=== PATIENT | male | born 1985 | race African-American/Black ===

== ENCOUNTER 2016-12-09 20:57 | Emergency (ER) | payer SELFPAY ==
[2016-12-09] MEDS ORDERED: Lidocaine 2% Viscous Solution 15 ML Cup PO ONE (21:17)
[2016-12-09] MEDS ORDERED: Benzocaine 20% Topical Spray UD MUCMEM ONE (21:17)
--- NOTE | 2016-12-09 21:22 | EDM.PDOC ---
ED HPI GENERAL MEDICAL PROBLEM - General Chief Complaint: General Stated Complaint: BLEEDING MOUTH Time Seen by Provider: 12/09/16 21:10 Source of Information: Reports: Patient History Limitations: Reports: No limitations - History of Present Illness INITIAL COMMENTS - FREE TEXT/NARRATIVE: History of present illness: [31-year-old male comes in complaining with acute oral pain indicates that he has had 2 stents fractured and his mouth is bleeding. Tooth is an area of 18-19 and is able to store tooth that has now fractured and you can see the amalgam as well as the Bentson and some beginning caries.] Review of systems: As per history of present illness and below otherwise all systems reviewed and negative. Past medical history: As per history of present illness and as reviewed below otherwise noncontributory. Surgical history: As per history of present illness and as reviewed below otherwise noncontributory. Social history: No reported history of drug or alcohol abuse. Family history: As per history of present illness and as reviewed below otherwise noncontributory. Physical exam: HEENT: Atraumatic, normocephalic, pupils reactive, negative for conjunctival pallor or scleral icterus, mucous membranes moist, throat clear, neck supple, nontender, trachea midline. Lungs: Clear to auscultation, breath sounds equal bilaterally, chest nontender. Heart: S1S2, regular, negative for clicks, rubs, or JVD. Abdomen: Soft, nondistended, nontender. Negative for masses or hepatosplenomegaly. Negative for costovertebral tenderness. Pelvis: Stable nontender. Genitourinary: Deferred. Rectal: Deferred. Extremities: Atraumatic, negative for cords or calf pain. Neurovascular unremarkable. Neuro: Awake, alert, oriented. Cranial nerves II through XII unremarkable. Cerebellum unremarkable. Motor and sensory unremarkable throughout. Exam nonfocal. Fractured tooth with obvious piece of tooth missing with dental caries Diagnostics: [] Therapeutics: [] Impression: [Oral pain] Plan: [Dental balls, antibiotics, brief run of Tylenol 3] Definitive disposition and diagnosis as appropriate pending reevaluation and review of above. left lower jaw Pain Score (Numeric/FACES): 8 - Related Data Allergies Allergy/AdvReac Type Severity Reaction Status Date / Time seafood Allergy Airway Uncoded 12/09/16 21:08 Tightness Home Meds: Home Meds Amoxicillin/Clavulanate K [Augmentin 875 MG/125 MG] 1 tab PO Q12HR #20 tablet [Rx] Past Medical History - Past Health History Medical/Surgical History: Denies Medical/Surgical History Other Cardiovascular History: childhood heart murmur - Infectious Disease History Infectious Disease History: Reports: Chicken pox Social & Family History - Family History Family Medical History: Noncontributory - Tobacco Use Smoking Status *Q: Current Every Day Smoker Years of Tobacco use: 3 Packs/Tins Daily: 0.5 Used Tobacco, but Quit: Yes Month Tobacco Last Used: 07/16/2015 - Recreational Drug Use Recreational Drug Use: Yes Drug Use in Last 12 Months: Yes Recreational Drug Type: Reports: Marijuana/Hashish Recreational Drug Use Frequency: Binges ED ROS GENERAL - Review of Systems Review Of Systems: See Below (The history of present illness) ED EXAM, GENERAL - Physical Exam Exam: See Below (See history of present illness) Course - Vital Signs Last Recorded V/S: Last Vital Signs Temp 36.4 C 12/09/16 21:08 Pulse 88 12/09/16 21:08 Resp 18 12/09/16 21:08 BP 134/74 12/09/16 21:08 Pulse Ox 98 12/09/16 21:08 - Orders/Labs/Meds Meds: Medications Discontinued Medications Generic Name Dose Route Start Last Admin Trade Name Torrey PRN Reason Stop Dose Admin Benzocaine 2 each 12/09/16 21:17 Hurricaine One 20% MUCMEM 12/09/16 21:18 ONETIME ONE Lidocaine HCl 15 ml 12/09/16 21:17 Xylocaine 2% Viscous PO 12/09/16 21:18 ONETIME ONE Departure - Departure Time of Disposition: 21:21 Disposition: Home, Self-Care 01 Condition: good Clinical Impression: Dental abscess, Dental caries, Fractured dental restorationism with loss of material Prescriptions: Amoxicillin/Clavulanate K [Augmentin 875 MG/125 MG] 1 tab PO Q12HR #20 tablet Forms: ED Department Discharge Additional Instructions: The following information is given to patients seen in the emergency department who are being discharged to home. This information is to outline your options for follow-up care. We provide all patients seen in our emergency department with a follow-up referral. The need for follow-up, as well as the timing and circumstances, are variable depending upon the specifics of your emergency department visit. If you don't have a primary care physician on staff, we will provide you with a referral. We always advise you to contact your personal physician following an emergency department visit to inform them of the circumstance of the visit and for follow-up with them and/or the need for any referrals to a consulting specialist. The emergency department will also refer you to a specialist when appropriate. This referral assures that you have the opportunity for follow-up care with a specialist. All of these measure are taken in an effort to provide you with optimal care, which includes your follow-up. Under all circumstances we always encourage you to contact your private physician who remains a resource for coordinating your care. When calling for follow-up care, please make the office aware that this follow-up is from your recent emergency room visit. If for any reason you are refused follow-up, please contact the [facility] Emergency Department at and asked to speak to the emergency department charge nurse. Take medication as directed All the primary care provider/dentist RAMY Return to ED as needed as discussed
[2016-12-09 21:39] VITALS: BP 127/71
== END 2016-12-09 21:39 | disposition home or self-care (01) ==
LOC: MW.ED 20:57
DX: K08.531 Fractured dental restorative material with loss of material (principal); K04.7 Periapical abscess without sinus; K02.9 Dental caries, unspecified; R01.1 Cardiac murmur, unspecified; F17.210 Nicotine dependence, cigarettes, uncomplicated; Z91.013 Allergy to seafood
CPT/HCPCS: 99282; A9270; 99283

== ENCOUNTER 2017-01-27 08:37 | Emergency (ER) | payer SELFPAY ==
[2017-01-27] MEDS ORDERED: Benzocaine 20% Topical Spray UD MUCMEM ONE (08:52)
[2017-01-27] MEDS ORDERED: Lidocaine 2% Viscous Solution 15 ML Cup PO ONE (08:52)
[2017-01-27] MEDS ORDERED: traMADol 50 MG Tab PO ONE (08:55)
--- NOTE | 2017-01-27 08:56 | EDM.PDOC ---
ED HPI GENERAL MEDICAL PROBLEM - General Chief Complaint: General Stated Complaint: MOUTH Time Seen by Provider: 01/27/17 08:38 Source of Information: Reports: Patient History Limitations: Reports: No Limitations - History of Present Illness INITIAL COMMENTS - FREE TEXT/NARRATIVE: History of present illness: [] Patient has history of a bad tooth it intermittently flares up with pain. Yesterday it got worse after eating something hard or he denies any fevers, chills or swelling of his face. He feels there is swelling of the surrounding gum but denies any drainage. Review of systems: As per history of present illness and below otherwise all systems reviewed and negative. Past medical history: As per history of present illness and as reviewed below otherwise noncontributory. Surgical history: As per history of present illness and as reviewed below otherwise noncontributory. Social history: No reported history of drug or alcohol abuse. Family history: As per history of present illness and as reviewed below otherwise noncontributory. Physical exam: General: Well developed, well nourished in NAD HEENT: Atraumatic, normocephalic, pupils reactive, negative for conjunctival pallor or scleral icterus, mucous membranes moist, throat clear, neck supple, nontender, trachea midline. Lungs: Clear to auscultation, breath sounds equal bilaterally, chest nontender. Heart: S1S2, regular, negative for clicks, rubs, or JVD. Abdomen: Soft, nondistended, nontender. Negative for masses or hepatosplenomegaly. Negative for costovertebral tenderness. Pelvis: Stable nontender. Genitourinary: Deferred. Rectal: Deferred. Extremities: Atraumatic, negative for cords or calf pain. Neurovascular unremarkable. Neuro: Awake, alert, oriented. Cranial nerves II through XII unremarkable. Cerebellum unremarkable. Motor and sensory unremarkable throughout. Exam nonfocal. Diagnostics: [] Therapeutics: [] I offered a dental block he refused because he is "deathly afraid of needles ". Patient given tramadol in the ED Impression: [] Dental caries Plan: [] Ritchie K, tramadol, dental balls for pain followup with a dentist for tooth extraction RAMY Definitive disposition and diagnosis as appropriate pending reevaluation and review of above. Left Lower Dental Pain Score (Numeric/FACES): 7 - Related Data Allergies Allergy/AdvReac Type Severity Reaction Status Date / Time seafood Allergy Airway Uncoded 01/27/17 08:50 Tightness Home Meds: Home Meds Penicillin V Potassium 500 mg PO Q6HR #40 tab 01/27/17 [Rx] traMADol [Ultram] 50 mg PO Q8H PRN #12 tablet 01/27/17 [Rx] Past Medical History - Past Health History Medical/Surgical History: Denies Medical/Surgical History Other Cardiovascular History: childhood heart murmur - Infectious Disease History Infectious Disease History: Reports: Chicken Pox Social & Family History - Family History Family Medical History: Noncontributory - Tobacco Use Smoking Status *Q: Current Every Day Smoker Years of Tobacco use: 3 Packs/Tins Daily: 0.5 Used Tobacco, but Quit: Yes Month Tobacco Last Used: 07/16/2015 - Recreational Drug Use Recreational Drug Use: Yes Drug Use in Last 12 Months: Yes Recreational Drug Type: Reports: Marijuana/Hashish Recreational Drug Use Frequency: Binges ED ROS GENERAL - Review of Systems Review Of Systems: See Below (See history of present illness) ED EXAM, GENERAL - Physical Exam Exam: See Below (See history of present illness) Course - Vital Signs Last Recorded V/S: Last Vital Signs Temp 36.7 C 01/27/17 08:50 Pulse 82 01/27/17 08:50 Resp 18 01/27/17 08:50 BP 196/103 H 01/27/17 08:50 Pulse Ox 97 01/27/17 08:50 - Orders/Labs/Meds Meds: Medications Discontinued Medications Generic Name Dose Route Start Last Admin Trade Name Freq PRN Reason Stop Dose Admin Benzocaine 2 each 01/27/17 08:52 Hurricaine One 20% MUCMEM 01/27/17 08:53 ONETIME ONE Lidocaine HCl 15 ml 01/27/17 08:52 Xylocaine 2% Viscous PO 01/27/17 08:53 ONETIME ONE Tramadol HCl 50 mg 01/27/17 08:55 Ultram PO 01/27/17 08:56 ONETIME ONE Departure - Departure Time of Disposition: 08:58 Disposition: Home, Self-Care 01 Condition: good Clinical Impression: Dental caries - Discharge Information Prescriptions: Penicillin V Potassium 500 mg PO Q6HR #40 tab traMADol [Ultram] 50 mg PO Q8H PRN #12 tablet PRN Reason: Pain Forms: ED Department Discharge Additional Instructions: The following information is given to patients seen in the emergency department who are being discharged to home. This information is to outline your options for follow-up care. We provide all patients seen in our emergency department with a follow-up referral. The need for follow-up, as well as the timing and circumstances, are variable depending upon the specifics of your emergency department visit. If you don't have a primary care physician on staff, we will provide you with a referral. We always advise you to contact your personal physician following an emergency department visit to inform them of the circumstance of the visit and for follow-up with them and/or the need for any referrals to a consulting specialist. The emergency department will also refer you to a specialist when appropriate. This referral assures that you have the opportunity for follow-up care with a specialist. All of these measure are taken in an effort to provide you with optimal care, which includes your follow-up. Under all circumstances we always encourage you to contact your private physician who remains a resource for coordinating your care. When calling for follow-up care, please make the office aware that this follow-up is from your recent emergency room visit. If for any reason you are refused follow-up, please contact the [facility] Emergency Department at and asked to speak to the emergency department charge nurse. Tramadol, dental pulse, Pen-Vee K followup with a dentist as soon as possible for evaluation or establish primary care for pain management the [facility] [address] [place] [id number]
[2017-01-27] MEDS ORDERED: Ibuprofen 800 MG Tab PO ONE (09:06)
[2017-01-27 09:35] VITALS: BP 138/81
== END 2017-01-27 09:33 | disposition home or self-care (01) ==
LOC: MW.ED 08:37
DX: K02.9 Dental caries, unspecified (principal); F17.210 Nicotine dependence, cigarettes, uncomplicated; Z91.013 Allergy to seafood
CPT/HCPCS: 99282; A9270; 99283

== ENCOUNTER 2017-11-07 11:09 | Emergency (ER) | payer SELFPAY ==
[2017-11-07 11:26] VITALS: BP 166/102
[2017-11-07] MEDS ORDERED: Benzocaine 20% Topical Spray UD MUCMEM ONE (12:05)
[2017-11-07] MEDS ORDERED: Lidocaine 2% Viscous Solution 15 ML Cup PO ONE (12:05)
--- NOTE | 2017-11-07 12:06 | EDM.PDOC ---
ED HPI GENERAL MEDICAL PROBLEM - General Chief Complaint: ENT Problem Stated Complaint: ABSCESS TOOTH Time Seen by Provider: 11/07/17 12:01 Source of Information: Reports: Patient History Limitations: Reports: No Limitations - History of Present Illness INITIAL COMMENTS - FREE TEXT/NARRATIVE: HISTORY AND PHYSICAL: []32-year-old male presenting with tooth abscess now the tooth has come out History of Present Illness: []Pain since yesterday when tooth "fell out" Review of Systems: As per history of present illness and below otherwise all systems reviewed and negative. Past medical history: As per history of present illness and as reviewed below otherwise noncontributory. Surgical history: As per history of present illness and as reviewed below otherwise noncontributory. Social history: No reported history of drug or alcohol abuse. Family history: As per history of present illness and as reviewed below otherwise noncontributory. Physical exam: Alert and oriented male who is answering questions appropriately in full sentences without any shortness of breath is good affect and good eye contact HEENT: Atraumatic, normocehpalic, pupils reactive, negative for conjunctival pallor or scleral icterus, mucous membranes moist, throat clear, neck supple, nontender, trachea midline. Left side of jaw line 2 teeth from the back there is a tooth missing and a opening to the side of his jaw Lungs: Clear to auscultation, breath sounds equal bilaterally, chest non tender. Heart: S1S2, regular, negative for clicks, rubs, or JVD. Abdomen: Soft, nondistended, nontender. Negative for masses or hepatossplenmegaly. Negative for costovertebral tenderness. Pelvis: Stable nontender. Genitourinary: Deferred. Rectal: Deferred Extremities: Atraumatic, negative for cords or calf pain. Neurovascular unremarkable. Neuro: Awake, alert, oriented. Cranial nerves II through XII unremarkable. Cerebellum unremarkable. Motor and sensory unremarkable throughout. Exam nonfocal. Diagnostics: [] Therapeutics: [dental balls] Impression: [Dental abscess] Plan: []Antibiotics Augmentin 875 twice a day 10 days Use the dental balls Follow-up with a dentist of your choice Definitive disposition and diagnosis as appropriate pending reevaluation and review of above. Onset: Sudden Duration: Day(s): Left Lower Tooth/Teeth Pain Score (Numeric/FACES): 3 - Related Data Allergies Allergy/AdvReac Type Severity Reaction Status Date / Time seafood Allergy Airway Uncoded 11/07/17 11:26 Tightness Home Meds: Home Meds Amoxicillin/Potassium Clav [Augmentin 875-125 Tablet] 1 each PO Q12HR #20 tablet 11/07/17 [Rx] Past Medical History - Past Health History Medical/Surgical History: Denies Medical/Surgical History Other Cardiovascular History: childhood heart murmur - Infectious Disease History Infectious Disease History: Reports: Chicken Pox, Other (See Below) Other Infectious Disease History: impetigo Social & Family History - Family History Family Medical History: Noncontributory - Tobacco Use Smoking Status *Q: Current Every Day Smoker Years of Tobacco use: 2 Packs/Tins Daily: 0.1 Used Tobacco, but Quit: Yes Month Tobacco Last Used: 07/16/2015 - Recreational Drug Use Recreational Drug Use: Yes Drug Use in Last 12 Months: No Recreational Drug Type: Reports: Marijuana/Hashish Recreational Drug Use Frequency: Binges ED ROS ENT - Review of Systems Review Of Systems: ROS reveals no pertinent complaints other than HPI. ED EXAM, ENT - Physical Exam Exam: See Below (see dictation) Course - Vital Signs Last Recorded V/S: Last Vital Signs Temp 36.2 C 11/07/17 11:24 Pulse 67 11/07/17 11:24 Resp 18 11/07/17 11:24 BP 166/102 H 11/07/17 11:24 Pulse Ox 97 11/07/17 11:24 Departure - Departure Time of Disposition: 12:04 Disposition: Home, Self-Care 01 Condition: Good Clinical Impression: Dental abscess - Discharge Information Prescriptions: Amoxicillin/Potassium Clav [Augmentin 875-125 Tablet] 1 each PO Q12HR #20 tablet Referrals: PCP,None [Primary Care Provider] - Additional Instructions: The following information is given to patients seen in the emergency department who are being discharged to home. This information is to outline your options for follow-up care. We provide all patients seen in our emergency department with a follow-up referral. The need for follow-up, as well as the timing and circumstances, are variable depending upon the specifics of your emergency department visit. If you don't have a primary care physician on staff, we will provide you with a referral. We always advise you to contact your personal physician following an emergency department visit to inform them of the circumstance of the visit and for follow-up with them and/or the need for any referrals to a consulting specialist. The emergency department will also refer you to a specialist when appropriate. This referral assures that you have the opportunity for followup care with a specialist. All of these measure are taken in an effort to provide you with optimal care, which includes your followup. Under all circumstances we always encourage you to contact your private physician who remains a resource for coordinating your care. When calling for followup care, please make the office aware that this follow-up is from your recent emergency room visit. If for any reason you are refused follow-up, please contact the [facility] emergency department at and asked to speak to the emergency department charge nurse. Follow-up with dentist of your choice Antibiotic is been sent to your pharmacy Dental balls for discomfort as directed
== END 2017-11-07 12:29 | disposition home or self-care (01) ==
LOC: MW.ED 11:09
DX: K04.7 Periapical abscess without sinus (principal); F17.210 Nicotine dependence, cigarettes, uncomplicated; Z91.013 Allergy to seafood
CPT/HCPCS: 99282; A9270

== ENCOUNTER 2019-06-14 19:52 | Emergency (ER) | payer SELFPAY ==
--- NOTE | 2019-06-14 20:09 | EDM.PDOC ---
ED HPI GENERAL MEDICAL PROBLEM - General Chief Complaint: Lower Extremity Injury/Pain Stated Complaint: PT HURT LT ANKLE Time Seen by Provider: 06/14/19 19:59 - History of Present Illness INITIAL COMMENTS - FREE TEXT/NARRATIVE: HISTORY AND PHYSICAL: History of present illness: Patient 33-year-old black male who presents to weeks status post left ankle injury with continued pain and swelling no other trauma concern and no other complaints Review of systems: As per history of present illness and below otherwise all systems reviewed and negative. Past medical history: As per history of present illness and as reviewed below otherwise noncontributory. Surgical history: As per history of present illness and as reviewed below otherwise noncontributory. Social history: No reported history of drug or alcohol abuse. Family history: As per history of present illness and as reviewed below otherwise noncontributory. Physical exam: HEENT: Atraumatic, normocephalic, pupils reactive, negative for conjunctival pallor or scleral icterus, mucous membranes moist, throat clear, neck supple, nontender, trachea midline. Lungs: Clear to auscultation, breath sounds equal bilaterally, chest nontender. Heart: S1S2, regular, negative for clicks, rubs, or JVD. Abdomen: Soft, nondistended, nontender. Negative for masses or hepatosplenomegaly. Negative for costovertebral tenderness. Pelvis: Stable nontender. Genitourinary: Deferred. Rectal: Deferred. Extremities: Patient has tenderness and swelling in region of the lateral malleolus of his left ankle neurovascular CMS unremarkable Achilles tendon is intact there is no proximal fibular tenderness. Neuro: Awake, alert, oriented. Cranial nerves II through XII unremarkable. Cerebellum unremarkable. Motor and sensory unremarkable throughout. Exam nonfocal. Diagnostics: X-ray left ankle Therapeutics: Posterior mold crutches Impression: #1 left ankle pain 2 weeks status post injury Definitive disposition and diagnosis as appropriate pending reevaluation and review of above. left ankle Pain Score (Numeric/FACES): 7 - Related Data Allergies Allergy/AdvReac Type Severity Reaction Status Date / Time seafood Allergy Airway Uncoded 04/08/18 17:59 Tightness Home Meds: Home Meds . [No Known Home Meds] 06/14/19 [History] Past Medical History - Past Health History Medical/Surgical History: Denies Medical/Surgical History Other Cardiovascular History: childhood heart murmur - Infectious Disease History Infectious Disease History: Reports: Chicken Pox Other Infectious Disease History: impetigo Social & Family History - Family History Family Medical History: Noncontributory - Caffeine Use Caffeine Use: Reports: None Review of Systems - Review of Systems Review Of Systems: ROS reveals no pertinent complaints other than HPI. ED EXAM, GENERAL - Physical Exam Exam: See Below (Dictation) Course - Vital Signs Last Recorded V/S: Last Vital Signs Temp 35.9 C 06/14/19 20:02 Pulse 76 06/14/19 20:02 Resp 14 06/14/19 20:02 BP 160/88 H 06/14/19 20:02 Pulse Ox 99 06/14/19 20:02 Departure - Departure Time of Disposition: 20:55 Disposition: Home, Self-Care 01 Condition: Good Clinical Impression: Fractured tibia - Discharge Information Forms: ED Department Discharge Additional Instructions: The following information is given to patients seen in the emergency department who are being discharged to home. This information is to outline your options for follow-up care. We provide all patients seen in our emergency department with a follow-up referral. The need for follow-up, as well as the timing and circumstances, are variable depending upon the specifics of your emergency department visit. If you don't have a primary care physician on staff, we will provide you with a referral. We always advise you to contact your personal physician following an emergency department visit to inform them of the circumstance of the visit and for follow-up with them and/or the need for any referrals to a consulting specialist. The emergency department will also refer you to a specialist when appropriate. This referral assures that you have the opportunity for followup care with a specialist. All of these measure are taken in an effort to provide you with optimal care, which includes your followup. Under all circumstances we always encourage you to contact your private physician who remains a resource for coordinating your care. When calling for followup care, please make the office aware that this follow-up is from your recent emergency room visit. If for any reason you are refused follow-up, please contact the [facility] emergency department at and asked to speak to the emergency department charge nurse. [facility] - [facility] Professional Building [address] [place] [address], [address] [place] [address] Posterior mold crutches as directed Motrin/Tylenol as directed follow-up orthopedic surgery as referred return as needed as discussed
--- NOTE | 2019-06-14 20:39 | CR ---
INDICATION: Pain after sports injury COMPARISON: None available. FINDINGS: AP, lateral and oblique views of the left ankle were obtained for a total of three views. There is an acute, nondisplaced vertical fracture of the posterior distal tibia. Interestingly, there is no sign of any accompanying fracture of the medial or lateral malleoli. There is no sign of additional fracture or dislocation. The ankle mortise is intact. The talar dome is intact. There is a moderate ankle joint effusion. There is mild anterior soft tissue swelling. No degenerative changes are seen. IMPRESSION: Acute, nondisplaced vertical fracture of the posterior distal tibia. No sign of any other fracture elsewhere in the ankle with preservation of the relationships of the ankle mortise. Moderate ankle joint effusion. Mild anterior soft tissue swelling. Dictated by Tucker Jasso MD @ Jun 14 2019 8:36PM Signed by Dr. Tucker Jasso @ Jun 14 2019 8:37PM
[2019-06-14 21:17] VITALS: BP 119/74; PULSE 73
== END 2019-06-14 21:10 | disposition home or self-care (01) ==
LOC: MW.ED 19:52
DX: S82.392A Other fracture of lower end of left tibia, initial encounter for closed fracture (principal); Z91.013 Allergy to seafood; X58.XXXA Exposure to other specified factors, initial encounter
CPT/HCPCS: 73610-26-LT; 73610-LT; 99283-25

== ENCOUNTER 2019-08-07 17:39 | Emergency (ER) | payer SELFPAY ==
--- NOTE | 2019-08-07 18:26 | EDM.PDOC ---
ED HPI GENERAL MEDICAL PROBLEM - General Chief Complaint: Lower Extremity Injury/Pain Stated Complaint: SPRAINED LEFT ANKLE Time Seen by Provider: 08/07/19 18:24 Source of Information: Reports: Patient - History of Present Illness INITIAL COMMENTS - FREE TEXT/NARRATIVE: HISTORY AND PHYSICAL: History of present illness: [Yolanda shunt presents with history of tibial fracture, his initial visit he had waited a couple of weeks to Me and as he thought it had a sprained ankle however there was found to be a fracture is placed in a CAM boot due to the length of time of the fracture is recently taken a CAM boot off he was running up the steps and again felt pain X-ray does not reveal any nerupture with callus formation remains visible we will follow radiology interpretation however at this time CAM boot crutches nonweightbearing Follow-up with orthopedist No other injury no fever nausea vomiting chills sweats Review of systems: As per history of present illness and below otherwise all systems reviewed and negative. Past medical history: As per history of present illness and as reviewed below otherwise noncontributory. Surgical history: As per history of present illness and as reviewed below otherwise noncontributory. Social history: No reported history of drug or alcohol abuse. Family history: As per history of present illness and as reviewed below otherwise noncontributory. Physical exam: HEENT: Atraumatic, normocephalic, pupils reactive, negative for conjunctival pallor or scleral icterus, mucous membranes moist, throat clear, neck supple, nontender, trachea midline. Lungs: Clear to auscultation, breath sounds equal bilaterally, chest nontender. Heart: S1S2, regular, negative for clicks, rubs, or JVD. Abdomen: Soft, nondistended, nontender. Negative for masses or hepatosplenomegaly. Negative for costovertebral tenderness. Pelvis: Stable nontender. Genitourinary: Deferred. Rectal: Deferred. Extremities: Atraumatic, negative for cords or calf pain. Neurovascular unremarkable. Neuro: Awake, alert, oriented. Cranial nerves II through XII unremarkable. Cerebellum unremarkable. Motor and sensory unremarkable throughout. Exam nonfocal. Diagnostics: [ ankle 3 views ] Therapeutics: [ M boot crutches nonweightbearing Follow-up with orthopedist ] Impression: [ left ankle injury ] Definitive disposition and diagnosis as appropriate pending reevaluation and review of above. left ankle Pain Score (Numeric/FACES): 6 - Related Data Allergies Allergy/AdvReac Type Severity Reaction Status Date / Time seafood Allergy Airway Uncoded 08/07/19 17:53 Tightness Home Meds: Home Meds . [No Known Home Meds] 06/14/19 [History] Past Medical History - Past Health History Medical/Surgical History: Denies Medical/Surgical History Other Cardiovascular History: childhood heart murmur - Infectious Disease History Infectious Disease History: Reports: Chicken Pox Other Infectious Disease History: impetigo Social & Family History - Family History Family Medical History: Noncontributory - Tobacco Use Smoking Status *Q: Current Every Day Smoker Years of Tobacco use: 7 Packs/Tins Daily: 0.5 - Caffeine Use Caffeine Use: Reports: None - Recreational Drug Use Recreational Drug Use: No Review of Systems - Review of Systems Review Of Systems: See Below ED EXAM, GENERAL - Physical Exam Exam: See Below Course - Vital Signs Last Recorded V/S: Last Vital Signs Temp 97.6 F 08/07/19 17:51 Pulse 65 08/07/19 17:51 Resp 18 08/07/19 17:51 BP 169/101 H 08/07/19 17:51 Pulse Ox 99 08/07/19 17:51 - Orders/Labs/Meds Orders: Active Orders 24 hr Category Date Time Status Ankle Min 3V Lt [CR] Stat Exams 08/07/19 17:43 Taken Departure - Departure Time of Disposition: 18:25 Disposition: Home, Self-Care 01 Condition: Good Clinical Impression: Left ankle injury - Discharge Information Referrals: PCP,None [Primary Care Provider] - Additional Instructions: Continue CAM boot crutches nonweightbearing Return if symptoms persist or worsen Follow-up with orthopedist call phone number below to schedule appropriate follow-up [facility] [address], [address] [place] [address] my orthopedic The following information is given to patients seen in the emergency department who are being discharged to home. This information is to outline your options for follow-up care. We provide all patients seen in our emergency department with a follow-up referral. The need for follow-up, as well as the timing and circumstances, are variable depending upon the specifics of your emergency department visit. If you don't have a primary care physician on staff, we will provide you with a referral. We always advise you to contact your personal physician following an emergency department visit to inform them of the circumstance of the visit and for follow-up with them and/or the need for any referrals to a consulting specialist. The emergency department will also refer you to a specialist when appropriate. This referral assures that you have the opportunity for follow-up care with a specialist. All of these measure are taken in an effort to provide you with optimal care, which includes your follow-up. Under all circumstances we always encourage you to contact your private physician who remains a resource for coordinating your care. When calling for follow-up care, please make the office aware that this follow-up is from your recent emergency room visit. If for any reason you are refused follow-up, please contact the [facility] emergency department at and asked to speak to the emergency department charge nurse. - My Orders Last 24 Hours: My Active Orders 08/07/19 17:43 Ankle Min 3V Lt [CR] Stat - Assessment/Plan Last 24 Hours: My Active Orders 08/07/19 17:43 Ankle Min 3V Lt [CR] Stat
--- NOTE | 2019-08-07 18:30 | CR ---
HISTORY: Posterior tibial fracture. Pain. TECHNIQUE: Three views of the left ankle. COMPARISON: 06/14/2019. FINDINGS: Persistent visualization of a portion of the posterior distal tibial fracture line with callus formation present about the fracture. Fracture does not appear completely healed as of yet. There is no new fracture. No widening of the ankle mortise. No significant degenerative change. No radiopaque foreign body or soft tissue gas. IMPRESSION: 1. As of yet incomplete healing of the posterior distal tibial fracture. Persistent visualization of a portion of the fracture line with callus formation. 2. No new fracture. 3. No widening of the ankle mortise. Dictated by Daryl España MD @ 08/07/2019 6:28:37 PM Dictated by: Daryl España MD @ 08/07/2019 18:28:47 (Electronically Signed)
[2019-08-07 18:41] VITALS: BP 158/76; PULSE 71
== END 2019-08-07 18:39 | disposition home or self-care (01) ==
LOC: MW.ED 17:39
DX: S99.912A Unspecified injury of left ankle, initial encounter (principal); F17.210 Nicotine dependence, cigarettes, uncomplicated; Z91.013 Allergy to seafood; X58.XXXA Exposure to other specified factors, initial encounter; Y93.02 Activity, running
CPT/HCPCS: 73610-26-LT; 73610-LT; 99283-25

== ENCOUNTER 2023-04-24 13:48 | Emergency (ER) | payer SELFPAY ==
[2023-04-24 16:07] VITALS: BP 185/109; PULSE 74
== END 2023-04-24 16:08 | disposition home or self-care (01) ==
LOC: MW.ED 13:48
DX: J02.9 Acute pharyngitis, unspecified (principal); Z91.013 Allergy to seafood
CPT/HCPCS: 87651-QW; 99283